=== PATIENT | male | born 1995 | race Caucasian/White ===

== ENCOUNTER 2022-03-16 03:12 | Emergency (ER) | payer MEDICAID ==
[~2022-03-16] VITALS: Ht 170.2 cm; Wt 89.0 kg
[2022-03-16] MEDS ORDERED: ONDANSETRON 4MG ODT PO ONE (03:30)
[2022-03-16 03:54] LABS: BASOPHILS % 0.4 % (0.0-2.0); EOSINOPHILS % 0.5 % (0.0-5.0); HEMATOCRIT. 41.8 % (42.0-52.0); HEMOGLOBIN. 14.3 g/dL (14.0-18.0); LYMPHOCYTES % 38.8 % (20.0-50.0); MEAN CORPUSCULAR HEMOGLOBIN 30.2 pg (28.0-32.0); MEAN CORPUSCULAR VOLUME 88.2 fL (80.0-94.0); MONOCYTES % 8.2 % (2.0-8.0); NEUTROPHILS % 52.1 % (40.0-76.0); PLATELET 238 x1000/uL (130-400); RED BLOOD CELL COUNT 4.74 mill/uL (4.7-6.1); RED CELL DISTRIBUTION WIDTH 12.8 % (11.6-14.6)
[2022-03-16 04:02] LABS: CHLORIDE 111 mEq/L (98-107)
[2022-03-16 04:10] LABS: ETHANOL BLOOD 203 mg/dL
[2022-03-16] MEDS ORDERED: POTASSIUM CHLORIDE 20MEQ TABLET SR PO NR (04:15)
[2022-03-16 06:00] VITALS: BP 132/80
== END 2022-03-16 05:20 | disposition home or self-care (01) ==
LOC: ER 03:12
DX: F10.129 Alcohol abuse with intoxication, unspecified (principal); Y90.7 Blood alcohol level of 200-239 mg/100 ml; K92.0 Hematemesis
CPT/HCPCS: 36415; 80053; 80320; 82962; 85025; 86850; 86900; 86901; 99283; Q0162; G0480